=== PATIENT | female | born 1945 | race African-American/Black ===

== ENCOUNTER → 2017-09-30 | Outpatient (CLI) | payer MEDICARE, OTHER ==
[2017-09-30 08:27] LABS: ABSOLUTE BASOPHILS # (AUTO) 0.1 10^3/uL (0.0-0.2); ABSOLUTE EOSINOPHILS # (AUTO) 0.1 10^3/uL (0.0-0.6); ABSOLUTE LYMPHOCYTES (AUTO) 1.5 10^3/uL (0.5-4.7); ABSOLUTE MONOCYTES (AUTO) 0.3 10^3/uL (0.1-1.4); ABSOLUTE NEUT (AUTO) 2.5 10^3/uL (1.7-8.2); BASOPHILS % (AUTO) 1.1 % (0-2); EOSINOPHILS % (AUTO) 1.8 % (0-6); HEMATOCRIT 34.3 % (36.0-47.0); HEMOGLOBIN 11.4 g/dL (12.0-15.5); LYMPHOCYTES % (AUTO) 33.4 % (13-45); MEAN CORPUSCULAR HEMOGLOBIN 28.7 pg (27.0-33.4); MEAN CORPUSCULAR HGB CONC 33.2 g/dL (32.0-36.0); MEAN CORPUSCULAR VOLUME 86 fl (80-97); MONOCYTES % (AUTO) 7.3 % (3-13); PLATELET COUNT 341 10^3/uL (150-450); RED BLOOD COUNT 3.97 10^6/uL (3.72-5.28); RED CELL DISTRIBUTION WIDTH 14.7 % (11.5-14.0); SEGMENTED NEUTROPHILS % (AUTO) 56.4 % (42-78); TOTAL CELLS COUNTED % (AUTO) 100 %; WHITE BLOOD COUNT 4.4 10^3/uL (4.0-10.5)
[2017-09-30 08:53] LABS: ALANINE AMINOTRANSFERASE 16 U/L (9-52); ALBUMIN 3.4 g/dL (3.5-5.0); ALKALINE PHOSPHATASE 122 U/L (38-126); ANION GAP 8 (5-19); ASPARTATE AMINO TRANSFERASE 20 U/L (14-36); BILIRUBIN,DIRECT 0.3 mg/dL (0.0-0.4); BILIRUBIN,TOTAL 0.6 mg/dL (0.2-1.3); BLOOD UREA NITROGEN 6 mg/dL (7-20); CALCIUM 9.5 mg/dL (8.4-10.2); CARBON DIOXIDE 31 mmol/L (22-30); CHLORIDE 107 mmol/L (98-107); CHOLESTEROL 173.24 mg/dL (0-200); GLUCOSE 86 mg/dL (75-110); POTASSIUM 3.5 mmol/L (3.6-5.0); SODIUM 146.4 mmol/L (137-145); TOTAL PROTEIN 7.2 g/dL (6.3-8.2); TRIGLYCERIDES 92 mg/dL (<150)
[2017-09-30 09:04] LABS: DIRECT LDL 100 mg/dL (<100)
[2017-10-01 10:36] LABS: CREATININE URINE 121.8 mg/dL (Not Estab.); MICROALBUMIN URINE 11.6 ug/mL (Not Estab.)
== END ==
LOC: OD 07:12
PROVIDERS: ATTEND Internal Medicine
DX: E11.9 Type 2 diabetes mellitus without complications (principal); I10 Essential (primary) hypertension; E78.2 Mixed hyperlipidemia; M06.9 Rheumatoid arthritis, unspecified; Z68.29 Body mass index [BMI] 29.0-29.9, adult
CPT/HCPCS: 36415; 80053; 80061; 82043; 82306; 82570; 83036; 85025

== ENCOUNTER → 2017-10-21 | Outpatient (CLI) | payer MEDICARE, OTHER ==
[2017-10-21 10:57] LABS: ABSOLUTE EOSINOPHILS # (AUTO) 0.1 10^3/uL (0.0-0.6); ABSOLUTE LYMPHOCYTES (AUTO) 1.4 10^3/uL (0.5-4.7); ABSOLUTE MONOCYTES (AUTO) 0.4 10^3/uL (0.1-1.4); BASOPHILS % (AUTO) 0.9 % (0-2); EOSINOPHILS % (AUTO) 2.9 % (0-6); HEMATOCRIT 33.8 % (36.0-47.0); HEMOGLOBIN 11.2 g/dL (12.0-15.5); LYMPHOCYTES % (AUTO) 34.7 % (13-45); MEAN CORPUSCULAR HEMOGLOBIN 28.6 pg (27.0-33.4); MEAN CORPUSCULAR HGB CONC 33.1 g/dL (32.0-36.0); MEAN CORPUSCULAR VOLUME 86 fl (80-97); MONOCYTES % (AUTO) 11.5 % (3-13); PLATELET COUNT 268 10^3/uL (150-450); RED BLOOD COUNT 3.91 10^6/uL (3.72-5.28); RED CELL DISTRIBUTION WIDTH 15.2 % (11.5-14.0); TOTAL CELLS COUNTED % (AUTO) 100 %; WHITE BLOOD COUNT 3.9 10^3/uL (4.0-10.5)
--- NOTE | 2017-10-21 11:56 | RADIOLOGY REPORT (SQ) ---
EXAM DESCRIPTION: CHEST PA/LATERAL COMPLETED DATE/TIME: 10/21/2017 10:30 am REASON FOR STUDY: BRONCHITIS, NOT SPECIFIED ACUTE OR CHRONIC COMPARISON: 07/23/2015 EXAM PARAMETERS: NUMBER OF VIEWS: two views TECHNIQUE: Digital Frontal and Lateral radiographic views of the chest acquired. RADIATION DOSE: NA LIMITATIONS: none FINDINGS: LUNGS AND PLEURA: No opacities, masses or pneumothorax. No pleural effusion. MEDIASTINUM AND HILAR STRUCTURES: No masses or contour abnormalities. HEART AND VASCULAR STRUCTURES: Heart normal size. No evidence for failure. BONES: No acute findings. HARDWARE: None in the chest. OTHER: No other significant finding. IMPRESSION: NO SIGNIFICANT RADIOGRAPHIC FINDING IN THE CHEST. TECHNICAL DOCUMENTATION: JOB ID: [id number] [employer]- All Rights Reserved Reading location - IP/workstation name: [email or web address]
== END ==
LOC: OD 10:10
PROVIDERS: ATTEND Internal Medicine
DX: J40 Bronchitis, not specified as acute or chronic (principal)
CPT/HCPCS: 36415; 71046; 85025

== ENCOUNTER → 2017-11-04 | Outpatient (CLI) | payer MEDICARE, OTHER ==
[2017-11-04 09:17] LABS: ALANINE AMINOTRANSFERASE 18 U/L (9-52); ALBUMIN 3.3 g/dL (3.5-5.0); ALKALINE PHOSPHATASE 97 U/L (38-126); ANION GAP 7 (5-19); ASPARTATE AMINO TRANSFERASE 18 U/L (14-36); BILIRUBIN,DIRECT 0.3 mg/dL (0.0-0.4); BILIRUBIN,TOTAL 0.7 mg/dL (0.2-1.3); BLOOD UREA NITROGEN 9 mg/dL (7-20); CALCIUM 9.6 mg/dL (8.4-10.2); CARBON DIOXIDE 37 mmol/L (22-30); CHLORIDE 100 mmol/L (98-107); GLUCOSE 98 mg/dL (75-110); POTASSIUM 3.4 mmol/L (3.6-5.0); SODIUM 143.6 mmol/L (137-145); TOTAL PROTEIN 7.1 g/dL (6.3-8.2)
== END ==
LOC: OD 07:50
PROVIDERS: ATTEND Internal Medicine
DX: R10.9 Unspecified abdominal pain (principal); Z68.28 Body mass index [BMI] 28.0-28.9, adult
CPT/HCPCS: 36415; 80053

== ENCOUNTER → 2017-11-16 | Outpatient (CLI) | payer MEDICARE, OTHER ==
[2017-11-16 08:57] LABS: ANION GAP 9 (5-19); BLOOD UREA NITROGEN 6 mg/dL (7-20); CALCIUM 9.5 mg/dL (8.4-10.2); CARBON DIOXIDE 28 mmol/L (22-30); CHLORIDE 107 mmol/L (98-107); GLUCOSE 98 mg/dL (75-110); POTASSIUM 4.1 mmol/L (3.6-5.0); SODIUM 143.9 mmol/L (137-145)
== END ==
LOC: OD 07:16
PROVIDERS: ATTEND Internal Medicine
DX: E87.6 Hypokalemia (principal)
CPT/HCPCS: 36415; 80048

== ENCOUNTER → 2018-03-16 | Outpatient (CLI) | payer MEDICARE, OTHER ==
[2018-03-16 08:29] LABS: ANION GAP 6 (5-19); BLOOD UREA NITROGEN 11 mg/dL (7-20); CALCIUM 9.4 mg/dL (8.4-10.2); CARBON DIOXIDE 31 mmol/L (22-30); CHLORIDE 105 mmol/L (98-107); CHOLESTEROL 160.88 mg/dL (0-200); GLUCOSE 100 mg/dL (75-110); POTASSIUM 3.7 mmol/L (3.6-5.0); SODIUM 142.4 mmol/L (137-145); TRIGLYCERIDES 69 mg/dL (<150)
[2018-03-16 08:40] LABS: DIRECT LDL 93 mg/dL (<100)
== END ==
LOC: OD 07:06
PROVIDERS: ATTEND Internal Medicine
DX: N18.2 Chronic kidney disease, stage 2 (mild) (principal); E78.5 Hyperlipidemia, unspecified; E11.9 Type 2 diabetes mellitus without complications; E55.9 Vitamin D deficiency, unspecified
CPT/HCPCS: 36415; 80048; 80061; 82306; 83036

== ENCOUNTER → 2018-05-02 | Outpatient (CLI) | payer MEDICARE, OTHER ==
[2018-05-02 12:24] LABS: ALANINE AMINOTRANSFERASE 23 U/L (9-52); ALBUMIN 3.9 g/dL (3.5-5.0); ALKALINE PHOSPHATASE 114 U/L (38-126); ASPARTATE AMINO TRANSFERASE 22 U/L (14-36); BILIRUBIN,DIRECT 0.3 mg/dL (0.0-0.4); BILIRUBIN,TOTAL 0.5 mg/dL (0.2-1.3); TOTAL PROTEIN 7.4 g/dL (6.3-8.2)
== END ==
LOC: OD 11:09
PROVIDERS: ATTEND Internal Medicine
DX: E03.9 Hypothyroidism, unspecified (principal); R80.9 Proteinuria, unspecified; R94.5 Abnormal results of liver function studies
CPT/HCPCS: 36415; 80076; 84156; 84443

== ENCOUNTER → 2018-05-02 | Outpatient (CLI) | payer MEDICARE ==
--- NOTE | 2018-05-02 18:12 | XCELERA REPORT ---
[address] [address] Transthoracic Echocardiogram Report Name: ONI COLUNGA Age: 72 yrs Gender: Female : 1945 Patient Status: Outpatient Patient Location: Study Date: 05/02/2018 10:18 AM Height: 65 in Weight: 164 lb BSA: 1.8 m2 Reason For Study: CHF Ordering Physician: OTIS POST Performed By: Rissa Limon Interpretation Summary Mikd basal IVS hypokinesis only, and basal lateral wall not visualised, This did not affect overall LVEF which is 63% and normal. There is only stage I LV diastolic dysfunction, and no LV enlargement. Mild/mod TR with mild RA enlargement, but no pulm hypertension by TR jet sampled. No ASD by doppler. Mild AV sclerosis but no and no AR seen by color flow. Mild MR with no MS, no MVP and no LA enlargement, KASSIE is <31cc/m2. MMode/2D Measurements & Calculations RVDd: 2.6 cm LVIDd: 5.2 cm FS: 31.0 % Ao root diam: 2.6 cm IVSd: 0.97 cm LVIDs: 3.6 cm EDV(Teich): Ao root area: LVPWd: 0.99 cm 129.9 ml ESV(Teich): 54.2 ml5.5 cm2 LA dimension: 3.5 cm EF(Teich): 58.3 % LVLd ap4: 6.6 cm SV(MOD-sp4): EDV(MOD-sp4): 41.0 ml 72.0 ml LVLs ap4: 4.7 cm ESV(MOD-sp4): 31.0 ml EF(MOD-sp4): 56.9 % Doppler Measurements & Calculations MV E max mandeep: MV P1/2t max mandeep: Ao V2 max: LV V1 max P.7 cm/sec 62.9 cm/sec 126.7 cm/sec 4.0 mmHg MV A max mandeep: MV P1/2t: 89.4 msec Ao max P.4 mmHg LV V1 max: 87.1 cm/sec 99.9 cm/sec MV E/A: 0.71 MVA(P1/2t): 2.5 cm2 MV dec slope: 206.0 cm/sec2 MV dec time: 0.29 sec PA V2 max: TR max mandeep: MV P1/2t-pr_phl: 78.0 cm/sec 230.4 cm/sec 89.4 msec PA max PG: TR max P.2 mmHg 2.4 mmHg Left Ventricle The left ventricle is grossly normal size. There is normal left ventricular wall thickness. The left ventricular ejection fraction is normal. LV EF is 63%. Doppler measurements suggest impaired left ventricular relaxation, which is associated with grade I/IV or mild diastolic dysfunction. There is proximal septal wall mild hypokinesis. Not all wall segments were well visualized. There is no thrombus. Right Ventricle The right ventricle is normal in size, thickness and function. The right ventricular systolic function is normal. Atria The right atrium is mildly dilated. The left atrial size is normal. The interatrial septum is intact with no evidence for an atrial septal defect. Mitral Valve The mitral valve leaflets appear normal. There is no evidence of stenosis, fluttering, or prolapse. There is mild mitral annular calcification. There is no evidence of mitral valve prolapse. There is no mitral valve stenosis. There is a mild amount of mitral regurgitation. Aortic Valve The aortic valve is trileaflet. The aortic valve opens well. The aortic valve is sclerotic and shows some degree of functional abnormality. There is no aortic valvular vegetation. There is no aortic valve stenosis. No aortic regurgitation is present. Tricuspid Valve The tricuspid is normal in structure and function. There is no tricuspid valve prolapse. There is no tricuspid stenosis. There is a mild to moderate amount of tricuspid regurgitation. Right ventricular systolic pressure is estimated to be within upper limit of normal. Best estimated RVSP is approximately 30 mm/Hg. Pulmonic Valve The pulmonic valve is not well visualized. There is no pulmonic valvular regurgitation. Great Vessels The aortic root is normal size. Effusions There is no pericardial effusion. I WMSI = 1.13 % Normal = 87 Segments Size X - Cannot 2 - 4 - 1-2 small Interpret 1 - Normal Hypokinetic 3 - AkineticDyskinetic 3-5 moderate 5 - 6-14 large Aneurysmal 15-16 diffuse : OTIS POST > Chapito Jain
== END ==
LOC: SP 09:44
PROVIDERS: ATTEND Internal Medicine
DX: I50.9 Heart failure, unspecified (principal)
CPT/HCPCS: 93306

== ENCOUNTER → 2018-05-17 | Outpatient (CLI) | payer MEDICARE, OTHER ==
[2018-05-17 08:29] LABS: ABSOLUTE EOSINOPHILS # (AUTO) 0.1 10^3/uL (0.0-0.6); ABSOLUTE LYMPHOCYTES (AUTO) 1.3 10^3/uL (0.5-4.7); ABSOLUTE MONOCYTES (AUTO) 0.6 10^3/uL (0.1-1.4); ABSOLUTE NEUT (AUTO) 1.4 10^3/uL (1.7-8.2); BASOPHILS % (AUTO) 0.8 % (0-2); EOSINOPHILS % (AUTO) 2.8 % (0-6); HEMATOCRIT 34.1 % (36.0-47.0); HEMOGLOBIN 11.4 g/dL (12.0-15.5); LYMPHOCYTES % (AUTO) 37.9 % (13-45); MEAN CORPUSCULAR HEMOGLOBIN 29.5 pg (27.0-33.4); MEAN CORPUSCULAR HGB CONC 33.4 g/dL (32.0-36.0); MEAN CORPUSCULAR VOLUME 88 fl (80-97); MONOCYTES % (AUTO) 17.2 % (3-13); PLATELET COUNT 221 10^3/uL (150-450); RED BLOOD COUNT 3.87 10^6/uL (3.72-5.28); SEGMENTED NEUTROPHILS % (AUTO) 41.3 % (42-78); TOTAL CELLS COUNTED % (AUTO) 100 %; WHITE BLOOD COUNT 3.5 10^3/uL (4.0-10.5)
[2018-05-17 08:55] LABS: CHOLESTEROL 173.96 mg/dL (0-200); POTASSIUM 4.7 mmol/L (3.6-5.0); TRIGLYCERIDES 68 mg/dL (<150)
[2018-05-17 09:07] LABS: DIRECT LDL 99 mg/dL (<100)
== END ==
LOC: OD 07:20
PROVIDERS: ATTEND Internal Medicine
DX: E11.9 Type 2 diabetes mellitus without complications (principal); E78.5 Hyperlipidemia, unspecified; D64.9 Anemia, unspecified; E87.5 Hyperkalemia
CPT/HCPCS: 36415; 80061; 83036; 84132; 85025

== ENCOUNTER → 2018-06-29 | Outpatient (CLI) | payer MEDICARE, OTHER | LOC: OD 07:45 | PROVIDERS: ATTEND Internal Medicine | DX: M32.9 Systemic lupus erythematosus, unspecified (principal) | CPT/HCPCS: 36415; 86038; 86225 ==

== ENCOUNTER → 2018-09-20 | Outpatient (CLI) | payer MEDICARE, OTHER ==
[2018-09-20 07:52] LABS: ABSOLUTE EOSINOPHILS # (AUTO) 0.2 10^3/uL (0.0-0.6); ABSOLUTE LYMPHOCYTES (AUTO) 1.4 10^3/uL (0.5-4.7); ABSOLUTE MONOCYTES (AUTO) 0.7 10^3/uL (0.1-1.4); ABSOLUTE NEUT (AUTO) 1.8 10^3/uL (1.7-8.2); BASOPHILS % (AUTO) 0.8 % (0-2); EOSINOPHILS % (AUTO) 3.7 % (0-6); HEMATOCRIT 24.9 % (36.0-47.0); HEMOGLOBIN 8.2 g/dL (12.0-15.5); LYMPHOCYTES % (AUTO) 34.9 % (13-45); MEAN CORPUSCULAR HEMOGLOBIN 29.5 pg (27.0-33.4); MEAN CORPUSCULAR VOLUME 89 fl (80-97); MONOCYTES % (AUTO) 17.3 % (3-13); PLATELET COUNT 207 10^3/uL (150-450); RED BLOOD COUNT 2.78 10^6/uL (3.72-5.28); RED CELL DISTRIBUTION WIDTH 16.6 % (11.5-14.0); SEGMENTED NEUTROPHILS % (AUTO) 43.3 % (42-78); TOTAL CELLS COUNTED % (AUTO) 100 %; WHITE BLOOD COUNT 4.1 10^3/uL (4.0-10.5)
[2018-09-20 08:25] LABS: ALANINE AMINOTRANSFERASE 31 U/L (9-52); ALBUMIN 3.7 g/dL (3.5-5.0); ALKALINE PHOSPHATASE 98 U/L (38-126); ANION GAP 7 (5-19); ASPARTATE AMINO TRANSFERASE 24 U/L (14-36); BILIRUBIN,DIRECT 0.2 mg/dL (0.0-0.4); BILIRUBIN,TOTAL 0.6 mg/dL (0.2-1.3); BLOOD UREA NITROGEN 17 mg/dL (7-20); CALCIUM 9.4 mg/dL (8.4-10.2); CARBON DIOXIDE 25 mmol/L (22-30); CHLORIDE 110 mmol/L (98-107); GLUCOSE 92 mg/dL (75-110); POTASSIUM 4.4 mmol/L (3.6-5.0); SODIUM 142.2 mmol/L (137-145); TOTAL PROTEIN 7.1 g/dL (6.3-8.2)
== END ==
LOC: OD 07:13
PROVIDERS: ATTEND Internal Medicine
DX: E11.9 Type 2 diabetes mellitus without complications (principal); R10.9 Unspecified abdominal pain; D64.9 Anemia, unspecified; E03.9 Hypothyroidism, unspecified
CPT/HCPCS: 36415; 80053; 83036; 84443; 85025

== ENCOUNTER → 2018-09-21 | Outpatient (CLI) | payer MEDICARE, OTHER ==
[2018-09-21 08:21] LABS: ABSOLUTE RETICS # 0.059 10^6/uL (0.028-0.122)
[2018-09-21 09:52] LABS: FOLATE > 20.00 ng/mL (>2.76)
== END ==
LOC: OD 07:26
PROVIDERS: ATTEND Internal Medicine
DX: D50.9 Iron deficiency anemia, unspecified (principal)
CPT/HCPCS: 36415; 82607; 82668; 82728; 82746; 83540; 83550; 85045; 86038

== ENCOUNTER → 2018-09-25 | Outpatient (CLI) | payer MEDICARE, OTHER ==
[2018-09-27 15:36] LABS: A/G RATIO 1.1 (0.7-1.7); ALBUMIN 2 3.6 g/dL (2.9-4.4); ALPHA-2-GLOBULIN 2 0.8 g/dL (0.4-1.0); BETA GLOBULINS 1.3 g/dL (0.7-1.3); GAMMA GLOBULIN 1.1 g/dL (0.4-1.8); GLOBULIN TOTAL 3.4 g/dL (2.2-3.9); IMMUNOGLOBULIN A 536 mg/dL (64-422); IMMUNOGLOBULIN G 1262 mg/dL (700-1600); MONOCLONAL SPIKE Not Observed g/dL (Not Observ)
[2018-09-27 16:37] LABS: FREE KAPPA LIGHT CHAINS 72.6 mg/L (3.3-19.4); FREE LAMBDA LIGHT CHAINS 32.6 mg/L (5.7-26.3)
[2018-09-28 07:31] LABS: IMMUNOGLOBULIN M 115 mg/dL (26-217); KAPPA LAMBDA RATIO 2.23 (0.26-1.65)
== END ==
LOC: LAB 12:07
PROVIDERS: ATTEND Internal Medicine
DX: C90.00 Multiple myeloma not having achieved remission (principal)
CPT/HCPCS: 36415; 82784; 83883; 84165

== ENCOUNTER → 2018-10-18 | Outpatient (CLI) | payer MEDICARE, OTHER ==
[2018-10-18 08:45] LABS: ANION GAP 10 (5-19); BLOOD UREA NITROGEN 12 mg/dL (7-20); CALCIUM 9.5 mg/dL (8.4-10.2); CARBON DIOXIDE 24 mmol/L (22-30); CHLORIDE 107 mmol/L (98-107); GLUCOSE 97 mg/dL (75-110); POTASSIUM 4.5 mmol/L (3.6-5.0)
== END ==
LOC: OD 07:20
PROVIDERS: ATTEND Family Medicine Geriatric Medicine
DX: I10 Essential (primary) hypertension (principal); E11.9 Type 2 diabetes mellitus without complications; Z79.899 Other long term (current) drug therapy
CPT/HCPCS: 36415; 80048

== ENCOUNTER → 2018-10-18 | Outpatient (CLI) | payer MEDICARE, OTHER ==
--- NOTE | 2018-10-18 18:27 | XCELERA REPORT ---
[address] [address] Transthoracic Echocardiogram Report Name: ONI COLUNGA Age: 73 yrs Gender: Female : 1945 Patient Status: Outpatient Patient Location: SP Study Date: 10/18/2018 11:29 AM Height: 65 in Weight: 176 lb BSA: 1.9 m2 Reason For Study: SOB Ordering Physician: ISRAEL EM Performed By: Elisabeth Villalobos Interpretation Summary small post post pericardial effusion, no tamponade. No or , only 3 cusps nonstenotic calcific aortic valvular sclerosis. Normal MV with no MVP or MS and only mild MR with no LA enlargement. LV apical hypertrophy mild, no concentric hypertrophy, normal LVEF 65-70 % with stage I LV diastolic dysfunction and no LV enlargement. RV poorly seen, RV doesnot appear enlarged. RA not measured, TR jet was not properly sampled to derive PASP to r/o pulm hypertension, but IVC didnot collapse properly without IVC engorgement (17mm), hence suspect the poor collapse is due to no proper coaching of pt to sniff by this dental technician. Etiology of pt's SOB may not originate from her heart. MMode/2D Measurements & Calculations IVSd: 0.88 cm LVIDd: 5.2 cm FS: 38.5 % Ao root diam: LVIDs: 3.2 cm EDV(Teich): 2.7 cm LVPWd: 0.96 cm 128.9 ml Ao root area: ESV(Teich): 40.7 ml 5.8 cm2 LA dimension: EF(Teich): 68.4 % 3.2 cm LVLd ap4: 7.1 cm SV(MOD-sp4): EDV(MOD-sp4): 81.0 ml 111.0 ml LVLs ap4: 6.5 cm ESV(MOD-sp4): 30.0 ml EF(MOD-sp4): 73.0 % Doppler Measurements & Calculations MV E max mandeep: MV dec time: Ao V2 max: LV V1 max P.9 cm/sec 0.19 sec 151.3 cm/sec 5.3 mmHg MV A max mandeep: Ao max P.2 mmHg LV V1 max: 88.4 cm/sec 114.7 cm/sec MV E/A: 0.98 PA V2 max: 87.4 cm/sec PA max P.1 mmHg Left Ventricle The left ventricle is grossly normal size. Apical hypertrophy is present. IVS/PW = 10/10 (mm0. The left ventricular ejection fraction is normal. LV EF is 65-70%. Doppler measurements suggest impaired left ventricular relaxation, which is associated with grade I/IV or mild diastolic dysfunction. No regional wall motion abnormalities noted. There is no thrombus. Right Ventricle The right ventricle is grossly normal size. The right ventricular systolic function is normal. Atria The right atrium is normal in size. The left atrial size is normal. KASSIE 32. The interatrial septum is intact with no evidence for an atrial septal defect. Mitral Valve The mitral valve is normal in structure and function. There is no mitral annular calcification. There is no evidence of mitral valve prolapse. There is no mitral valve stenosis. There is a mild amount of mitral regurgitation. Aortic Valve The aortic valve is trileaflet. The aortic valve opens well. The aortic valve is mildly calcified. There is no aortic valvular vegetation. There is no aortic valve stenosis. No aortic regurgitation is present. Tricuspid Valve The tricuspid valve is not well visualized, but is grossly normal. There is no tricuspid valve prolapse. There is no tricuspid stenosis. Tricuspid regurgitation jet envelope not well defined to measure RV systolic pressure accurately. Pulmonic Valve The pulmonic valve is not well visualized. There is no pulmonic valvular regurgitation. Great Vessels The aortic root is normal size. There is aortic root sclerosis/calcification. The inferior vena cava appeared dilated and decreased < 50% with respiration (RAP 15-20 mmHg). Effusions Small pericardial effusion. I WMSI = 1.00 % Normal = 100 Segments Size X - Cannot 1 - Normal 2 - 3 - Akinetic4 - 1-2 small Interpret Hypokinetic Dyskinetic 3-5 moderate 5 - 6-14 large Aneurysmal 15-16 diffuse : ISRAEL EM > Chapito Jain
== END ==
LOC: SP 10:54
PROVIDERS: ATTEND Family Medicine Geriatric Medicine
DX: R06.02 Shortness of breath (principal)
CPT/HCPCS: 93306

== ENCOUNTER → 2018-11-02 | Outpatient (CLI) | payer MEDICARE, OTHER | LOC: OD 11:26 | PROVIDERS: ATTEND Family Medicine Geriatric Medicine | DX: G62.9 Polyneuropathy, unspecified (principal) | CPT/HCPCS: 36415; 82607 ==

== ENCOUNTER → 2018-12-11 | Outpatient (CLI) | payer MEDICARE, OTHER ==
--- NOTE | 2018-12-11 13:18 | RADIOLOGY REPORT (SQ) ---
EXAM DESCRIPTION: CT CHEST WITHOUT COMPLETED DATE/TIME: 12/11/2018 1:05 pm REASON FOR STUDY: R91.1 SOLITARY PULMONARY NODULE R91.1 SOLITARY PULMONARY NODULE COMPARISON: CT chest 02/09/2016, 02/20/2015, 08/19/2014, 03/01/2014 TECHNIQUE: CT scan performed of the chest without intravenous contrast. Images reviewed with lung, soft tissue and bone windows. Reconstructed coronal and sagittal MPR images reviewed. All images st ored on PACS. All CT scanners at this facility use dose modulation, iterative reconstruction, and/or weight based d osing when appropriate to reduce radiation dose to as low as reasonably achievable (ALARA). [facility]: Dose Right [facility]: CareDose [facility]: Dose Right [facility]: Teradose 4D [facility]: Spectrum Devices RADIATION DOSE: CT Rad equipment meets quality standard of care and radiation dose reduction techniq ues were employed. CTDIvol: 9.2 mGy. DLP: 337 mGy-cm. mGy. LIMITATIONS: No technical limitations. FINDINGS: LUNGS AND PLEURA: 6 mm right lower lobe smooth round noncalcified granuloma unchanged from CT dating back to 03/01/2014, benign. No worrisome pulmonary nodules. No acute infiltrates. No pleural effusion. No pneumothorax. Airwa ys are widely patent. HILAR AND MEDIASTINAL STRUCTURES: No identified masses or abnormal nodes. No obvious aneurysm. HEART AND VASCULAR STRUCTURES: No aneurysm. No pericardial effusion. Stable cardiomegaly UPPER ABDOMEN: Post cholecystectomy THYROID AND OTHER SOFT TISSUES: Diffusely enlarged thyroid gland. Diffusely enlarged thymus in the a nterior mediastinum, stable BONES: No significant finding. HARDWARE: None in the chest. OTHER: No other significant findings. IMPRESSION: NO SIGNIFICANT FINDING ON NON-CONTRASTED CHEST CT. TECHNICAL DOCUMENTATION: JOB ID: [id number] Quality ID # [id number]: Final reports with documentation of one or more dose reduction techniques (e.g., Au tomated exposure control, adjustment of the mA and/or kV according to patient size, use of iterative reconstruction technique) 2010 [employer]- All Rights Reserved Reading location - IP/workstation name: [email or web address]
== END ==
LOC: RAD 12:41
PROVIDERS: ATTEND Internal Medicine Pulmonary Disease
DX: R91.1 Solitary pulmonary nodule (principal)
CPT/HCPCS: 71250

== ENCOUNTER 2018-12-21 12:16 | Emergency (ER) | payer MEDICARE, OTHER ==
[2018-12-21] MEDS ORDERED: ASPIRIN 81 MG TABLET, CHEWABLE PO ONE (12:31)
--- NOTE | 2018-12-21 12:32 | ER Document Report ---
ED Medical Screen (RME) - General Chief Complaint: Chest Pain Stated Complaint: BLOOD PRESSURE PROBLEM Time Seen by Provider: 12/21/18 12:31 Primary Care Provider: ALIA CAVAZOS MD [Primary Care Provider] - Follow up as needed Mode of Arrival: Wheelchair Information source: Patient, Relative Notes: This 73-year-old female presents emergency department with complaints of high blood pressure. Patient also reports she is having a little bit of chest tightness center of her chest. Reports she is been dealing with a high blood pressure for the last couple weeks. Has been to to providers regarding this. Denies fever vomiting diarrhea. I have greeted and performed a rapid initial assessment of this patient. A comprehensive ED assessment and evaluation of the patient, analysis of test results and completion of the medical decision making process will be conducted by additional ED providers. Dictation of this chart was performed using voice recognition software; therefore, there may be some unintended grammatical errors. TRAVEL OUTSIDE OF THE [place] IN LAST 30 DAYS: No - Related Data Allergies/Adverse Reactions: latex Allergy (Mild, Verified 12/21/18 12:25) Shellfish * [Shellfish] Allergy (Mild, Verified 12/21/18 12:25) swell up iodine [Iodine] Allergy (Verified 12/21/18 12:25) oxycodone [From Percocet] Adverse Reaction (Verified 12/21/18 12:25) Past Medical History - Social History Chew tobacco use (# tins/day): No Frequency of alcohol use: None Drug Abuse: None - Past Medical History Cardiac Medical History: Reports: Hx Hypertension Denies: Hx Heart Attack Pulmonary Medical History: Reports: Hx COPD Denies: Hx Asthma Neurological Medical History: Denies: Hx Cerebrovascular Accident, Hx Seizures Endocrine Medical History: Reports: Hx Diabetes Mellitus Type 2 GI Medical History: Denies: Hx Hepatitis, Hx Hiatal Hernia, Hx Ulcer Musculoskeltal Medical History: Reports Hx Arthritis Infectious Medical History: Denies: Hx Hepatitis Past Surgical History: Reports: Hx Hysterectomy, Hx Orthopedic Surgery - left hip replacement. Denies: Hx Mastectomy, Hx Open Heart Surgery, Hx Pacemaker - Immunizations Hx Diphtheria, Pertussis, Tetanus Vaccination: Yes Physical Exam - Vital signs Vitals: Temp Pulse Resp BP Pulse Ox 97.7 F 64 18 188/101 H 97 12/21/18 12:22 12/21/18 12:22 12/21/18 12:22 12/21/18 12:22 12/21/18 12:22 Course - Vital Signs Vital signs: Temp Pulse Resp BP Pulse Ox 97.7 F 64 18 188/101 H 97 12/21/18 12:22 12/21/18 12:22 12/21/18 12:22 12/21/18 12:22 12/21/18 12:22 Doctor's Discharge - Discharge Referrals: ALIA CAVAZOS MD [Primary Care Provider] - Follow up as needed
--- NOTE | 2018-12-21 13:08 | EKG REPORT ---
SEVERITY:- ABNORMAL ECG - SINUS RHYTHM NONSPECIFIC T ABNORMALITIES, ANT-LAT LEADS : Confirmed by: Chapito Jain MD 21-Dec-2018 13:07:49
[2018-12-21 13:22] LABS: ABSOLUTE BASOPHILS # (AUTO) 0.1 10^3/uL (0.0-0.2); ABSOLUTE EOSINOPHILS # (AUTO) 0.1 10^3/uL (0.0-0.6); ABSOLUTE LYMPHOCYTES (AUTO) 1.3 10^3/uL (0.5-4.7); ABSOLUTE MONOCYTES (AUTO) 0.3 10^3/uL (0.1-1.4); ABSOLUTE NEUT (AUTO) 1.7 10^3/uL (1.7-8.2); BASOPHILS % (AUTO) 1.5 % (0-2); EOSINOPHILS % (AUTO) 2.1 % (0-6); HEMATOCRIT 31.5 % (36.0-47.0); HEMOGLOBIN 10.2 g/dL (12.0-15.5); LYMPHOCYTES % (AUTO) 37.2 % (13-45); MEAN CORPUSCULAR HEMOGLOBIN 27.7 pg (27.0-33.4); MEAN CORPUSCULAR HGB CONC 32.2 g/dL (32.0-36.0); MEAN CORPUSCULAR VOLUME 86 fl (80-97); MONOCYTES % (AUTO) 9.1 % (3-13); PLATELET COUNT 241 10^3/uL (150-450); RED BLOOD COUNT 3.67 10^6/uL (3.72-5.28); RED CELL DISTRIBUTION WIDTH 14.8 % (11.5-14.0); SEGMENTED NEUTROPHILS % (AUTO) 50.1 % (42-78); TOTAL CELLS COUNTED % (AUTO) 100 %; WHITE BLOOD COUNT 3.5 10^3/uL (4.0-10.5)
[2018-12-21 13:43] LABS: ALBUMIN 3.5 g/dL (3.5-5.0); ALKALINE PHOSPHATASE 96 U/L (38-126); ANION GAP 7 (5-19); ASPARTATE AMINO TRANSFERASE 15 U/L (14-36); BILIRUBIN,TOTAL 0.4 mg/dL (0.2-1.3); BLOOD UREA NITROGEN 8 mg/dL (7-20); CALCIUM 9.9 mg/dL (8.4-10.2); CARBON DIOXIDE 28 mmol/L (22-30); CHLORIDE 106 mmol/L (98-107); CREATINE KINASE 52 U/L (30-135); GLUCOSE 115 mg/dL (75-110); POTASSIUM 3.8 mmol/L (3.6-5.0); TOTAL PROTEIN 8.4 g/dL (6.3-8.2)
--- NOTE | 2018-12-21 13:51 | RADIOLOGY REPORT (SQ) ---
EXAM DESCRIPTION: CHEST 2 VIEWS COMPLETED DATE/TIME: 12/21/2018 1:30 pm REASON FOR STUDY: CHEST COMPARISON: 07/23/2015 EXAM PARAMETERS: NUMBER OF VIEWS: two views TECHNIQUE: Digital Frontal and Lateral radiographic views of the chest acquired. RADIATION DOSE: NA LIMITATIONS: none FINDINGS: LUNGS AND PLEURA: No opacities, masses or pneumothorax. No pleural effusion. MEDIASTINUM AND HILAR STRUCTURES: No masses or contour abnormalities. HEART AND VASCULAR STRUCTURES: Cardiomegaly with no glenroy pulmonary edema. BONES: No acute findings. HARDWARE: None in the chest. OTHER: No other significant finding. IMPRESSION: Cardiomegaly without pulmonary edema. TECHNICAL DOCUMENTATION: JOB ID: [id number] [employer]- All Rights Reserved Reading location - IP/workstation name: [email or web address]
[2018-12-21 13:53] LABS: CREATINE KINASE MB 0.69 ng/mL (<4.55)
[2018-12-21 13:55] LABS: TROPONIN I < 0.012 ng/mL
--- NOTE | 2018-12-21 15:18 | ER Document Report ---
ED General - General Chief Complaint: Chest Pain Stated Complaint: BLOOD PRESSURE PROBLEM Time Seen by Provider: 12/21/18 12:31 Primary Care Provider: ALIA CAVAZOS MD [ACTIVE STAFF] - Follow up as needed Mode of Arrival: Wheelchair TRAVEL OUTSIDE OF THE [place] IN LAST 30 DAYS: No - HPI Patient complains to provider of: Chest Pain Notes: Uncontrolled hypertension in the outpatient realm. Seen her family doctor. Patient's systolic blood pressure 200. Patient said she had some fleeting chest pain with this 2/10 fluttering in nature. Nothing makes it better or worse. Patient is on multiple antihypertensive medications and just recently started on clonidine by her PCP. PCP was concerned this could be causing endorgan damage. She denies any headache or focal neurologic deficit, patient denies any decreased urinary output or pain at all. - Related Data Allergies/Adverse Reactions: latex Allergy (Mild, Verified 12/21/18 12:25) Shellfish * [Shellfish] Allergy (Mild, Verified 12/21/18 12:25) swell up iodine [Iodine] Allergy (Verified 12/21/18 12:25) oxycodone [From Percocet] Adverse Reaction (Verified 12/21/18 12:25) Past Medical History - General Information source: Patient, Relative - Social History Smoking Status: Never Smoker Chew tobacco use (# tins/day): No Frequency of alcohol use: None Drug Abuse: None Family History: Reviewed & Not Pertinent Patient has suicidal ideation: No Patient has homicidal ideation: No - Past Medical History Cardiac Medical History: Reports: Hx Hypertension Denies: Hx Heart Attack Pulmonary Medical History: Reports: Hx COPD Denies: Hx Asthma Neurological Medical History: Denies: Hx Cerebrovascular Accident, Hx Seizures Endocrine Medical History: Reports: Hx Diabetes Mellitus Type 2 GI Medical History: Denies: Hx Hepatitis, Hx Hiatal Hernia, Hx Ulcer Musculoskeletal Medical History: Reports Hx Arthritis Infectious Medical History: Denies: Hx Hepatitis Past Surgical History: Reports: Hx Hysterectomy, Hx Orthopedic Surgery - left hip replacement. Denies: Hx Mastectomy, Hx Open Heart Surgery, Hx Pacemaker - Immunizations Hx Diphtheria, Pertussis, Tetanus Vaccination: Yes Review of Systems - Review of Systems Notes: View of systems REVIEW OF SYSTEMS: CONSTITUTIONAL: -fevers, -chills EENT: -eye pain, -difficulty swallowing, -nasal congestion CARDIOVASCULAR: -chest pain, -syncope. RESPIRATORY: -cough, -SOB GASTROINTESTINAL: -abdominal pain, -nausea, -vomiting, -diarrhea GENITOURINARY: -dysuria, -hematuria MUSCULOSKELETAL: -back pain, -neck pain SKIN: -rash or skin lesions. HEMATOLOGIC: -easy bruising or bleeding. LYMPHATIC: -swollen, enlarged glands. NEUROLOGICAL: -altered mental status or loss of consciousness, -headache, - neurologic symptoms PSYCHIATRIC: -anxiety, -depression. ALL OTHER SYSTEMS REVIEWED AND NEGATIVE. Physical Exam - Vital signs Vitals: Temp Pulse Resp BP Pulse Ox 97.7 F 64 18 188/101 H 97 12/21/18 12:22 12/21/18 12:22 12/21/18 12:22 12/21/18 12:22 12/21/18 12:22 - Notes Notes: PHYSICAL EXAMINATION: GENERAL: Well-appearing, well-nourished and in no acute distress. HEAD: Atraumatic, normocephalic. EYES: Pupils equal round and reactive to light, extraocular movements intact, sclera anicteric, conjunctiva are normal. ENT: nares patent, oropharynx clear without exudates. Moist mucous membranes. NECK: Normal range of motion, supple without lymphadenopathy LUNGS: Breath sounds clear to auscultation bilaterally and equal. No wheezes rales or rhonchi. HEART: Regular rate and rhythm without murmurs ABDOMEN: Soft, nontender, normoactive bowel sounds. No guarding, no rebound. No masses appreciated. EXTREMITIES: Normal range of motion, no pitting or edema. No cyanosis. NEUROLOGICAL: Cranial nerves grossly intact. Normal speech, normal gait. Normal sensory and motor exams. PSYCH: Normal mood, normal affect. SKIN: Warm, Dry, normal turgor, no rashes or lesions noted. Course - Re-evaluation Re-evalutation: 12/21/18 15:33 Patient presents now pain-free. Reassuring physical exam no complaints at this time. EKG is no ischemic changes. Insert lab work unremarkable, negative troponin, preserved kidney function, no endorgan damage. Urine shows infection. Patient will be discharged home improved. Given oral clonidine. Systolic blood pressure improved to 170. Follow-up family doctor the next few days. Patient will return if anything changes or worsens. Patient has no pain 12/21/18 16:25 - Vital Signs Vital signs: Temp Pulse Resp BP Pulse Ox 97.7 F 64 21 H 171/79 H 99 12/21/18 12:22 12/21/18 12:22 12/21/18 16:01 12/21/18 15:01 12/21/18 16:01 - Laboratory Result Diagrams: 12/21/18 13:00 12/21/18 13:00 Laboratory results interpreted by me: 12/21/18 12/21/18 13:00 13:00 WBC 3.5 L RBC 3.67 L Hgb 10.2 L Hct 31.5 L RDW 14.8 H Glucose 115 H Total Protein 8.4 H - EKG Interpretation by Me Additional EKG results interpreted by me: 12/21/18 15:33 Reed sinus rhythm 54 bpm, normal AK, normal QRS, no ischemic changes. Discharge - Discharge Clinical Impression: Hypertension Qualifiers: Hypertension type: unspecified secondary hypertension Qualified Code(s): I15.9 - Secondary hypertension, unspecified; I15 - Secondary hypertension Disposition: HOME, SELF-CARE Instructions: Angina Episode ([facility]) Referrals: ALIA CAVAZOS MD [ACTIVE STAFF] - Follow up as needed
[2018-12-21] MEDS ORDERED: CLONIDINE HCL 0.2 MG TABLET PO ONE (16:11)
[2018-12-21 16:24] LABS: APPEARANCE,URINE CLEAR; BILIRUBIN,URINE NEGATIVE (NEGATIVE); COLOR,URINE COLORLESS; GLUCOSE, URINE NEGATIVE (NEGATIVE); KETONES,URINE NEGATIVE (NEGATIVE); LEUKOCYTE ESTERASE,URINE NEGATIVE (NEGATIVE); NITRITE,URINE NEGATIVE (NEGATIVE); PROTEIN,URINE NEGATIVE (NEGATIVE); URINE SPECIFIC GRAVITY 1.003; UROBILINOGEN,URINE NEGATIVE mg/dL (<2.0)
[2018-12-21 16:47] VITALS: BP 190/99
== END 2018-12-21 17:03 | disposition home or self-care (01) ==
LOC: ER 12:16
DX: R07.9 Chest pain, unspecified (principal); J44.9 Chronic obstructive pulmonary disease, unspecified; E11.9 Type 2 diabetes mellitus without complications; Z79.899 Other long term (current) drug therapy; Z91.040 Latex allergy status; Z91.013 Allergy to seafood
CPT/HCPCS: 93005; 99284; 36415; 82553; 82550; 85025; 80053; 81001; 84484; 71046; 93010; A9270 ×2

== ENCOUNTER 2018-12-22 06:38 | Observation (INO) | payer MEDICARE, OTHER ==
--- NOTE | 2018-12-22 07:19 | ER Document Report ---
ED General - General Chief Complaint: High Blood Pressure Stated Complaint: HIGH BLOOD PRESSURE Time Seen by Provider: 12/22/18 07:14 TRAVEL OUTSIDE OF THE [place] IN LAST 30 DAYS: No - HPI Patient complains to provider of: shoulder pain Notes: Elderly female presents with continued hypertension. This morning she woke up she had some crushing pain in her left upper shoulder which is new pain is 8/10 crushing in nature without radiation nothing makes it better or worse. Patient denies all other associated symptoms. - Related Data Allergies/Adverse Reactions: latex Allergy (Mild, Verified 12/21/18 12:25) Shellfish * [Shellfish] Allergy (Mild, Verified 12/21/18 12:25) swell up iodine [Iodine] Allergy (Verified 12/21/18 12:25) gabapentin Adverse Reaction (Verified 12/22/18 06:49) oxycodone [From Percocet] Adverse Reaction (Verified 12/21/18 12:25) Past Medical History - Social History Smoking Status: Never Smoker Chew tobacco use (# tins/day): No Frequency of alcohol use: None Family History: Reviewed & Not Pertinent Patient has suicidal ideation: No Patient has homicidal ideation: No - Past Medical History Cardiac Medical History: Reports: Hx Hypertension Denies: Hx Heart Attack Pulmonary Medical History: Reports: Hx COPD Denies: Hx Asthma Neurological Medical History: Denies: Hx Cerebrovascular Accident, Hx Seizures Endocrine Medical History: Reports: Hx Diabetes Mellitus Type 2 GI Medical History: Denies: Hx Hepatitis, Hx Hiatal Hernia, Hx Ulcer Musculoskeletal Medical History: Reports Hx Arthritis Infectious Medical History: Denies: Hx Hepatitis Past Surgical History: Reports: Hx Hysterectomy, Hx Orthopedic Surgery - left hip replacement. Denies: Hx Mastectomy, Hx Open Heart Surgery, Hx Pacemaker - Immunizations Hx Diphtheria, Pertussis, Tetanus Vaccination: Yes Review of Systems - Review of Systems Notes: REVIEW OF SYSTEMS: CONSTITUTIONAL: -fevers, -chills EENT: -eye pain, -difficulty swallowing, -nasal congestion CARDIOVASCULAR: positive chest pain, -syncope. RESPIRATORY: -cough, -SOB GASTROINTESTINAL: -abdominal pain, -nausea, -vomiting, -diarrhea GENITOURINARY: -dysuria, -hematuria MUSCULOSKELETAL: -back pain, -neck pain SKIN: -rash or skin lesions. HEMATOLOGIC: -easy bruising or bleeding. LYMPHATIC: -swollen, enlarged glands. NEUROLOGICAL: -altered mental status or loss of consciousness, -headache, - neurologic symptoms PSYCHIATRIC: -anxiety, -depression. ALL OTHER SYSTEMS REVIEWED AND NEGATIVE. Physical Exam - Vital signs Vitals: Temp Pulse Resp BP Pulse Ox 97.9 F 63 16 191/96 H 99 12/22/18 06:48 12/22/18 06:48 12/22/18 06:48 12/22/18 06:48 12/22/18 06:48 - Notes Notes: PHYSICAL EXAMINATION: GENERAL: Well-appearing, well-nourished and in no acute distress. HEAD: Atraumatic, normocephalic. EYES: Pupils equal round and reactive to light, extraocular movements intact, sclera anicteric, conjunctiva are normal. ENT: nares patent, oropharynx clear without exudates. Moist mucous membranes. NECK: Normal range of motion, supple without lymphadenopathy LUNGS: Breath sounds clear to auscultation bilaterally and equal. No wheezes rales or rhonchi. HEART: Regular rate and rhythm without murmurs ABDOMEN: Soft, nontender, normoactive bowel sounds. No guarding, no rebound. No masses appreciated. EXTREMITIES: Normal range of motion, no pitting or edema. No cyanosis. NEUROLOGICAL: Cranial nerves grossly intact. Normal speech, normal gait. Normal sensory and motor exams. PSYCH: Normal mood, normal affect. SKIN: Warm, Dry, normal turgor, no rashes or lesions noted. Course - Re-evaluation Re-evalutation: 12/22/18 08:49 73-year-old female presents with concerning story of accelerated hypertension and some left shoulder/chest pain. Patient's EKG is nonischemic, extensive lab work-up unremarkable, no obvious signs of endorgan damage. Negative troponin. Patient given antihypertensive agents in the emergency department. This the patient's second visit to the emergency department for similar symptoms last 2 days. Patient will be admitted for further evaluation of cardiac chest pain and accelerated hypertension. - Vital Signs Vital signs: Temp Pulse Resp BP Pulse Ox 97.9 F 63 16 191/96 H 99 12/22/18 06:48 12/22/18 06:48 12/22/18 06:48 12/22/18 06:48 12/22/18 06:48 - Laboratory Result Diagrams: 12/22/18 07:35 12/22/18 07:35 Laboratory results interpreted by me: 12/22/18 07:35 WBC 3.5 L Hgb 10.4 L Hct 32.6 L MCHC 31.9 L RDW 15.2 H Discharge - Discharge Clinical Impression: Hypertensive disorder Qualifiers: Hypertension type: unspecified Qualified Code(s): I10 - Essential (primary) hypertension Chest pain Qualifiers: Chest pain type: unspecified Qualified Code(s): R07.9 - Chest pain, unspecified Condition: Stable Disposition: ADMITTED INPATIENT Admitting Provider: Digna Carter Unit Admitted: Telemetry
[2018-12-22 08:01] LABS: ABSOLUTE EOSINOPHILS # (AUTO) 0.1 10^3/uL (0.0-0.6); ABSOLUTE LYMPHOCYTES (AUTO) 1.1 10^3/uL (0.5-4.7); ABSOLUTE MONOCYTES (AUTO) 0.4 10^3/uL (0.1-1.4); ABSOLUTE NEUT (AUTO) 1.9 10^3/uL (1.7-8.2); EOSINOPHILS % (AUTO) 2.3 % (0-6); HEMATOCRIT 32.6 % (36.0-47.0); HEMOGLOBIN 10.4 g/dL (12.0-15.5); LYMPHOCYTES % (AUTO) 31.2 % (13-45); MEAN CORPUSCULAR HEMOGLOBIN 27.4 pg (27.0-33.4); MEAN CORPUSCULAR HGB CONC 31.9 g/dL (32.0-36.0); MEAN CORPUSCULAR VOLUME 86 fl (80-97); MONOCYTES % (AUTO) 10.9 % (3-13); PLATELET COUNT 243 10^3/uL (150-450); RED BLOOD COUNT 3.79 10^6/uL (3.72-5.28); RED CELL DISTRIBUTION WIDTH 15.2 % (11.5-14.0); SEGMENTED NEUTROPHILS % (AUTO) 54.6 % (42-78); TOTAL CELLS COUNTED % (AUTO) 100 %; WHITE BLOOD COUNT 3.5 10^3/uL (4.0-10.5)
[2018-12-22 08:23] LABS: ANION GAP 6 (5-19); BLOOD UREA NITROGEN 9 mg/dL (7-20); CALCIUM 10.1 mg/dL (8.4-10.2); CARBON DIOXIDE 28 mmol/L (22-30); CHLORIDE 107 mmol/L (98-107); GLUCOSE 96 mg/dL (75-110); POTASSIUM 4.4 mmol/L (3.6-5.0)
[2018-12-22] MEDS ORDERED: CLONIDINE HCL 0.2 MG TABLET PO ONE (08:45)
[2018-12-22] MEDS ORDERED: NITROGLYCERIN 0.4 MG/TAB 25 TAB/BOTTLE SL PRN (09:22)
[2018-12-22] MEDS ORDERED: ONDANSETRON HCL INJ/PF 4 MG/2 ML SDV IV PRN (09:22)
[2018-12-22] MEDS ORDERED: ACETAMINOPHEN 325 MG TABLET PO PRN (09:22)
[2018-12-22] MEDS ORDERED: ASPIRIN 81 MG TABLET, CHEWABLE PO ONE (09:25)
[2018-12-22] MEDS ORDERED: HYDRALAZINE HCL INJ/PF 20 MG/1 ML SDV IV PRN (09:27)
[2018-12-22] MEDS: ASPIRIN 81 MG TABLET, ENT COATED PO SCH (09:37)
[2018-12-22] MEDS: CARVEDILOL 12.5 MG TABLET PO SCH ×2 (09:38→21:16)
[2018-12-22] MEDS ORDERED: LOSARTAN POTASSIUM 50 MG TABLET PO SCH (10:00)
--- NOTE | 2018-12-22 17:15 | PDOC H&P ---
History of Present Illness Admission Date/PCP: 12/22/18 09:09 Patient complains of: chest pain History of Present Illness: ONI COLUNGA is a 73 year old female with a past medical history significant for hypertension, DM 2, rheumatoid arthritis, GERD, COPD, and obesity who presented to the emergency department today with a complaint of uncontrolled blood pressures and chest pain. Patient was seen in the emergency department yesterday for similar symptoms; work-up at that time was unremarkable and all symptoms resolved upon achieving blood pressure control and so the patient was discharged home. Unfortunately, her chest pain has reoccurred; patient confirms compliance with medication regiment and dietary guidelines. Chest pain is described as substernal, nonradiating, crushing pain rated 8/10. She denied aggravating or alleviating factors. No associated symptoms. Evaluation in the emergency department today revealed blood pressures 180/111 but otherwise stable vital signs, baseline anemia with a hemoglobin of 10.4, unremarkable chemistry and normal troponin.. Urinalysis yesterday was benign. Chest x-ray (12/21/2018) demonstrated cardiomegaly without pulmonary edema. EKG reveals sinus rhythm with nonspecific T abnormalities to the anterior/lateral leads. The patient is referred to the hospitalist service for admission and management of the above-stated complaints and findings. Past Medical History Cardiac Medical History: Reports: Hypertension Denies: Congestive Heart Failure, Myocardial Infarction Pulmonary Medical History: Reports: Chronic Obstructive Pulmonary Disease (COPD) Denies: Asthma EENT Medical History: Reports: None Neurological Medical History: Denies: Ischemic CVA, Seizures Endocrine Medical History: Reports: Diabetes Mellitus Type 2, Obesity Renal/ Medical History: Reports: None Malignancy Medical History: Reports: None GI Medical History: Reports: Gastroesophageal Reflux Disease Denies: Hepatitis, Hiatal Hernia Musculoskeltal Medical History: Reports: Arthritis - Rheumatoid Psychiatric Medical History: Reports: None Traumatic Medical History: Reports: None Hematology: Reports: Anemia Denies: Sickle Cell Disease Infectious Medical History: Reports: None Past Surgical History Past Surgical History: Reports: Cholecystectomy, Hysterectomy, Orthopedic Surgery - left hip replacement Denies: Amputation, Mastectomy, Pacemaker Social History Information Source: Patient Lives with: Spouse/Significant other Smoking Status: Former Smoker Electronic Cigarette use?: No Frequency of Alcohol Use: None Hx Recreational Drug Use: No Drugs: None Hx Prescription Drug Abuse: No - Advance Directive Resuscitation Status: Full Code Family History Family History: Reviewed & Not Pertinent Parental Family History Reviewed: Yes Children Family History Reviewed: Yes Sibling(s) Family History Reviewed.: Yes Medication/Allergy Home Medications: Aspirin [Ecotrin 81 mg EC Tablet] 81 mg PO DAILY 12/22/18 Carvedilol [Coreg 25 mg Tablet] 25 mg PO Q12 12/22/18 Clonidine HCl [Catapres 0.1 mg Tablet] 0.1 mg PO Q12 12/22/18 Cyanocobalamin (Vitamin B-12) [Vitamin B-12 1000 mcg Tablet] 1,000 mcg PO DAILY 12/22/18 Ergocalciferol (Vitamin D2) [Drisdol 50,000 unit (1.25MG) Capsule] 50,000 unit PO MO@1000 12/22/18 Folic Acid [Folvite 1 mg Tablet] 1 mg PO DAILY 12/22/18 Glimepiride [Amaryl] 2 mg PO DAILY 12/22/18 Losartan Potassium [Cozaar 100 mg Tablet] 100 mg PO DAILY 12/22/18 Potassium Chloride [Klor-Con M20] 20 meq PO DAILY 12/22/18 Triamterene/Hydrochlorothiazid [Triamterene-Hctz 37.5-25 mg Tb] 1 tab PO DAILY 12/22/18 Umeclidinium Brm/Vilanterol Tr [Anoro Ellipta 62.5-25 Mcg INH] 1 puff IH DAILY 12/22/18 Allergies/Adverse Reactions: latex Allergy (Mild, Verified 12/21/18 12:25) Shellfish * [Shellfish] Allergy (Mild, Verified 12/21/18 12:25) swell up iodine [Iodine] Allergy (Verified 12/21/18 12:25) gabapentin Adverse Reaction (Verified 12/22/18 06:49) oxycodone [From Percocet] Adverse Reaction (Verified 12/21/18 12:25) Review of Systems Constitutional: ABSENT: chills, fever(s), headache(s), weight gain, weight loss Eyes: ABSENT: visual disturbances Ears: ABSENT: hearing changes Cardiovascular: PRESENT: chest pain. ABSENT: dyspnea on exertion, edema, orthropnea, palpitations Respiratory: ABSENT: cough, hemoptysis Gastrointestinal: ABSENT: abdominal pain, constipation, diarrhea, hematemesis, hematochezia, nausea, vomiting Genitourinary: ABSENT: dysuria, hematuria Musculoskeletal: ABSENT: joint swelling Integumentary: ABSENT: rash, wounds Neurological: ABSENT: abnormal gait, abnormal speech, confusion, dizziness, focal weakness, syncope Psychiatric: ABSENT: anxiety, depression, homidical ideation, suicidal ideation Endocrine: ABSENT: cold intolerance, heat intolerance, polydipsia, polyuria Hematologic/Lymphatic: ABSENT: easy bleeding, easy bruising Physical Exam Vital Signs: Temp Pulse Resp BP Pulse Ox 97.7 F 62 20 124/70 99 12/22/18 14:59 12/22/18 14:59 12/22/18 14:59 12/22/18 14:59 12/22/18 14:59 Intake & Output 12/21/18 12/22/18 12/23/18 06:59 06:59 06:59 Weight 69.3 kg 73.2 kg General appearance: PRESENT: no acute distress, cooperative, well-developed, well-nourished Head exam: PRESENT: atraumatic, normocephalic Eye exam: PRESENT: conjunctiva pink, EOMI, PERRLA. ABSENT: scleral icterus Ear exam: PRESENT: normal external ear exam Mouth exam: PRESENT: moist, tongue midline Neck exam: ABSENT: carotid bruit, JVD, lymphadenopathy, thyromegaly Respiratory exam: PRESENT: clear to auscultation alessandra, symmetrical - Overweight, unlabored. ABSENT: rales, rhonchi, wheezes Cardiovascular exam: PRESENT: RRR, +S1, +S2. ABSENT: diastolic murmur, rubs, systolic murmur Pulses: PRESENT: normal dorsalis pedis pul Vascular exam: PRESENT: normal capillary refill GI/Abdominal exam: PRESENT: normal bowel sounds, soft. ABSENT: distended, guarding, mass, organolmegaly, rebound, tenderness Rectal exam: PRESENT: deferred Extremities exam: PRESENT: full ROM. ABSENT: calf tenderness, clubbing, pedal edema Musculoskeletal exam: PRESENT: ambulatory Neurological exam: PRESENT: alert, awake, oriented to person, oriented to place, oriented to time, oriented to situation, CN II-XII grossly intact. ABSENT: motor sensory deficit Psychiatric exam: PRESENT: appropriate affect, normal mood. ABSENT: homicidal ideation, suicidal ideation Skin exam: PRESENT: dry, intact, warm. ABSENT: cyanosis, rash Results Laboratory Results: 12/22/18 07:35 12/22/18 07:35 12/22/18 12/22/18 07:35 07:35 WBC 3.5 L RBC 3.79 Hgb 10.4 L Hct 32.6 L MCV 86 MCH 27.4 MCHC 31.9 L RDW 15.2 H Plt Count 243 Seg Neutrophils % 54.6 Sodium 141.4 Potassium 4.4 Chloride 107 Carbon Dioxide 28 Anion Gap 6 BUN 9 Creatinine 0.85 Est GFR ( Amer) > 60 Glucose 96 Calcium 10.1 12/22/18 12/22/18 12/22/18 07:35 10: 14:40 Troponin I < 0.012 < 0.012 < 0.012 Assessment and Plan - Diagnosis (1) Chest pain Qualifiers: Chest pain type: unspecified Qualified Code(s): R07.9 - Chest pain, unspecified Is this a current diagnosis for this admission?: Yes Plan: Patient is admitted with recurrent chest pain associated with hypertensive urgency. Chest x-ray and EKG are reassuring. Patient did have a negative troponin yesterday; will continue to trend troponins today. Patient is admitted to the medical floor and continuous cardiac telemetry. We will trend troponins and check A1c, lipid panel, and TSH. Daily aspirin and statin therapy. Twice daily PPI. Nitroglycerin SL tabs as needed for pain. Discussed with patient that nuclear stress testing is unavailable on the weekends. She is advised that if her conservative work-up is reassuring, she will be discharged home with local cardiology follow-up scheduled next week to discuss outpatient stress testing and further evaluation. Patient understands and is agreeable with this plan. (2) Hypertensive urgency Is this a current diagnosis for this admission?: Yes Plan: The patient reports a several weeks of difficulty controlling blood pressure. She does report recent medication adjustments; unable to identify her new or increased medication. Blood pressure 180/110 on arrival to the ED today. We will evaluate TSH with a.m. lab work. Trend troponins. Chest x-ray and EKG are reassuring. Obtain renal/aorta ultrasound. Resume home medication regiment of carvedilol 25 mg p.o. every 12 hours, losartan 100 mg daily, Maxide 25, and clonidine 0.1 mg every 12 hours. IV hydralazine as needed for blood pressure control. Cardiac diet. (3) COPD (chronic obstructive pulmonary disease) Is this a current diagnosis for this admission?: Yes Plan: Stable and without exacerbation at this time. Continue home dose Anoro. Supplemental oxygen as needed to maintain saturations between 89 and 92%. As needed nebulizer treatments. No indications for antibiotic or steroid therapy at this time. (4) GERD (gastroesophageal reflux disease) Is this a current diagnosis for this admission?: Yes Plan: Possible cause of patient's recurrent chest pain. Start twice daily PPI. Barium swallow pending. (5) Diabetes mellitus, type 2 Qualifiers: Diabetes mellitus assisted insulin use: without intermodal owner operator truck driver use Diabetes mellitus complication status: without complication Qualified Code(s): E11.9 - Type 2 diabetes mellitus without complications Is this a current diagnosis for this admission?: Yes Plan: Patient's oral medications were held while admitted. Accu-Cheks before meals and at bedtime with sliding scale insulin. Check A1c with a.m. lab work. Consistent carb/cardiac diet. - Time Time Spent with patient: 35 or more minutes Medications reviewed and adjusted accordingly: Yes Anticipated discharge: Home Within: within 24 hours
[2018-12-22] MEDS: CLONIDINE HCL 0.1 MG TABLET PO SCH (21:16)
--- NOTE | 2018-12-22 21:23 | EKG REPORT ---
SEVERITY:- ABNORMAL ECG - SINUS RHYTHM NONSPECIFIC T ABNORMALITIES, ANT-LAT LEADS : Confirmed by: Chapito Jain MD 22-Dec-2018 21:22:52
[2018-12-22] MEDS ORDERED: ATORVASTATIN CALCIUM 40 MG TABLET PO SCH (22:00)
[2018-12-23 05:59] LABS: HEMATOCRIT 30.1 % (36.0-47.0); HEMOGLOBIN 9.7 g/dL (12.0-15.5); MEAN CORPUSCULAR HEMOGLOBIN 27.4 pg (27.0-33.4); MEAN CORPUSCULAR HGB CONC 32.3 g/dL (32.0-36.0); MEAN CORPUSCULAR VOLUME 85 fl (80-97); PLATELET COUNT 228 10^3/uL (150-450); RED BLOOD COUNT 3.55 10^6/uL (3.72-5.28); RED CELL DISTRIBUTION WIDTH 15.1 % (11.5-14.0); WHITE BLOOD COUNT 4.3 10^3/uL (4.0-10.5)
[2018-12-23 06:12] LABS: ANION GAP 9 (5-19); BLOOD UREA NITROGEN 11 mg/dL (7-20); CALCIUM 9.4 mg/dL (8.4-10.2); CARBON DIOXIDE 26 mmol/L (22-30); CHLORIDE 106 mmol/L (98-107); CHOLESTEROL 158.54 mg/dL (0-200); GLUCOSE 110 mg/dL (75-110); TRIGLYCERIDES 46 mg/dL (<150)
[2018-12-23 06:22] LABS: DIRECT LDL 101 mg/dL (<100)
[2018-12-23] MEDS: PANTOPRAZOLE SODIUM 40 MG TABLET.DR PO SCH ×2 (06:45→17:03)
[2018-12-23] MEDS ORDERED: TRIAMTERENE/HYDROCHLOROTHIAZIDE 37.5-25 MG TABLET PO SCH (10:00)
[2018-12-23] MEDS ORDERED: (PENDING PHARMACY ID) (Umeclidinium Brm/Vilanterol Tr [Anoro Ellipta 62.5-25 Mcg Inh] 1 PU IH SCH (10:00)
[2018-12-23] MEDS ORDERED: LOSARTAN POTASSIUM 50 MG TABLET PO SCH (10:00)
[2018-12-23] MEDS: CLONIDINE HCL 0.1 MG TABLET PO SCH (10:03)
[2018-12-23] MEDS: ASPIRIN 81 MG TABLET, ENT COATED PO SCH (10:04)
[2018-12-23] MEDS: CARVEDILOL 12.5 MG TABLET PO SCH (10:05)
[2018-12-23] MEDS ORDERED: CLONIDINE HCL 0.1 MG TABLET PO SCH (14:00)
[2018-12-23 16:35] VITALS: BP 161/75
--- NOTE | 2018-12-23 18:51 | PDOC DISCHARGE SUMMARY ---
Impression - Admit/DC Date/PCP Admission Date/Primary Care Provider: 12/22/18 09:09 Discharge Date: 12/23/18 - Discharge Diagnosis (1) Chest pain Is this a current diagnosis for this admission?: Yes (2) Hypertensive urgency Is this a current diagnosis for this admission?: Yes (3) COPD (chronic obstructive pulmonary disease) Is this a current diagnosis for this admission?: Yes (4) GERD (gastroesophageal reflux disease) Is this a current diagnosis for this admission?: Yes (5) Diabetes mellitus, type 2 Is this a current diagnosis for this admission?: Yes - Additional Information Resuscitation Status: Full Code Discharge Diet: Cardiac Discharge Activity: Activity As Tolerated, Balance Activity w/Rest Referrals: ISRAEL EM MD [COMMUNITY BASED STAFF] - Prescriptions: Clonidine HCl [Catapres 0.1 mg Tablet] 0.1 mg PO Q8 #90 tablet Pantoprazole Sodium [Protonix [address] Tablet] 40 mg PO DAILY #30 tablet.dr Home Medications: Aspirin [Ecotrin 81 mg EC Tablet] 81 mg PO DAILY 12/22/18 Carvedilol [Coreg 25 mg Tablet] 25 mg PO Q12 12/22/18 Cyanocobalamin (Vitamin B-12) [Vitamin B-12 1000 mcg Tablet] 1,000 mcg PO DAILY 12/22/18 Ergocalciferol (Vitamin D2) [Drisdol 50,000 unit (1.25MG) Capsule] 50,000 unit PO MO@1000 12/22/18 Folic Acid [Folvite 1 mg Tablet] 1 mg PO DAILY 12/22/18 Glimepiride [Amaryl] 2 mg PO DAILY 12/22/18 Losartan Potassium [Cozaar 100 mg Tablet] 100 mg PO DAILY 12/22/18 Potassium Chloride [Klor-Con M20] 20 meq PO DAILY 12/22/18 Triamterene/Hydrochlorothiazid [Triamterene-Hctz 37.5-25 mg Tb] 1 tab PO DAILY 12/22/18 Umeclidinium Brm/Vilanterol Tr [Anoro Ellipta 62.5-25 Mcg INH] 1 puff IH DAILY 12/22/18 Acetaminophen [Tylenol 325 mg Tablet] 650 mg PO Q4HP PRN tablet 12/23/18 Clonidine HCl [Catapres 0.1 mg Tablet] 0.1 mg PO Q8 #90 tablet 12/23/18 Pantoprazole Sodium [Protonix [address] Tablet] 40 mg PO DAILY #30 tablet. 12/23/18 History of Present Illiness History of Present Illness: ONI COLUNGA is a 73 year old female with a past medical history significant for hypertension, DM 2, rheumatoid arthritis, GERD, COPD, and obesity who presented to the emergency department today with a complaint of uncontrolled blood pressures and chest pain. Patient was seen in the emergency department yesterday for similar symptoms; work-up at that time was unremarkable and all symptoms resolved upon achieving blood pressure control and so the patient was discharged home. Unfortunately, her chest pain has reoccurred; patient confirms compliance with medication regiment and dietary guidelines. Chest pain is described as substernal, nonradiating, crushing pain rated 8/10. She denied aggravating or alleviating factors. No associated symptoms. Evaluation in the emergency department today revealed blood pressures 180/111 but otherwise stable vital signs, baseline anemia with a hemoglobin of 10.4, unremarkable chemistry and normal troponin.. Urinalysis yesterday was benign. Chest x-ray (12/21/2018) demonstrated cardiomegaly without pulmonary edema. EKG reveals sinus rhythm with nonspecific T abnormalities to the anterior/lateral leads. The patient is referred to the hospitalist service for admission and management of the above-stated complaints and findings. Hospital Course Hospital Course: The patient was admitted to the medical floor on continuous cardiac telemetry. She remained in sinus rhythm throughout her admission and had no further episodes of chest discomfort. Serial troponins were negative x4. A1c is 5.6%. Lipid panel revealed HDL 37, LDL 101, triglycerides 46, total cholesterol 158. TSH is normal. CBC and chemistry are unremarkable other than baseline anemia (hemoglobin of 9.7 at time of discharge). Nuclear stress testing is not available on the weekend; discussed with patient that she is stable for discharge to home with outpatient follow-up with cardiology services to arrange for further evaluation of her chest discomfort. She may also benefit from cardiology and/or hypertensive specialty referral for additional assistance in managing her hypertension. The patient underwent an renal aorta ultrasound; no evidence of renal artery stenosis. Would also recommend consideration of barium swallow study to evaluate for non- cardiac causes of her chest discomfort. The patient was admitted with hypertensive urgency; blood pressures 180/110. This could certainly be the source of her chest discomfort. Fortunately blood pressure control was obtained through resuming her home medication regiment and increasing her clonidine 0.1 mg p.o. tablet to 3 times daily. She is discharged with blood pressures of 161/75; will require additional medication titration/management as an outpatient. The patient is discharged home in stable condition. She is instructed to follow-up with her primary care provider within 1 week. She is advised to take her medications as prescribed and to eat a low-sodium diet. She is encouraged to return to the emergency department as needed for concerning symptoms. Physical Exam Vital Signs: Temp Pulse Resp BP Pulse Ox 98 F 60 18 161/75 H 98 12/23/18 18:08 12/23/18 18:08 12/23/18 18:08 12/23/18 18:08 12/23/18 18:08 Intake & Output 12/22/18 12/23/18 12/24/18 06:59 06:59 06:59 Intake Total 240 Balance 240 Weight 69.3 kg 73.5 kg General appearance: PRESENT: no acute distress, cooperative, well-developed, well-nourished - Overweight Head exam: PRESENT: atraumatic, normocephalic Eye exam: PRESENT: conjunctiva pink, EOMI, PERRLA. ABSENT: scleral icterus Ear exam: PRESENT: normal external ear exam Mouth exam: PRESENT: moist, tongue midline Neck exam: ABSENT: carotid bruit, JVD, lymphadenopathy, thyromegaly Respiratory exam: PRESENT: clear to auscultation alessandra, symmetrical, unlabored. ABSENT: rales, rhonchi, wheezes Cardiovascular exam: PRESENT: RRR, +S1, +S2. ABSENT: diastolic murmur, rubs, systolic murmur Pulses: PRESENT: normal dorsalis pedis pul Vascular exam: PRESENT: normal capillary refill GI/Abdominal exam: PRESENT: normal bowel sounds, soft. ABSENT: distended, guarding, mass, organolmegaly, rebound, tenderness Rectal exam: PRESENT: deferred Extremities exam: PRESENT: full ROM. ABSENT: calf tenderness, clubbing, pedal edema Musculoskeletal exam: PRESENT: ambulatory Neurological exam: PRESENT: alert, awake, oriented to person, oriented to place, oriented to time, oriented to situation, CN II-XII grossly intact. ABSENT: motor sensory deficit Psychiatric exam: PRESENT: appropriate affect, normal mood. ABSENT: homicidal ideation, suicidal ideation Skin exam: PRESENT: dry, intact, warm. ABSENT: cyanosis, rash Results Laboratory Results: WBC 4.3 10^3/uL (4.0-10.5) 12/23/18 05:41 RBC 3.55 10^6/uL (3.72-5.28) L 12/23/18 05:41 Hgb 9.7 g/dL (12.0-15.5) L 12/23/18 05:41 Hct 30.1 % (36.0-47.0) L 12/23/18 05:41 MCV 85 fl (80-97) 12/23/18 05:41 MCH 27.4 pg (27.0-33.4) 12/23/18 05:41 MCHC 32.3 g/dL (32.0-36.0) 12/23/18 05:41 RDW 15.1 % (11.5-14.0) H 12/23/18 05:41 Plt Count 228 10^3/uL (150-450) 12/23/18 05:41 Lymph % (Auto) 31.2 % (13-45) 12/22/18 07:35 [place] % (Auto) 10.9 % (3-13) 12/22/18 07:35 Eos % (Auto) 2.3 % (0-6) 12/22/18 07:35 Baso % (Auto) 1.0 % (0-2) 12/22/18 07:35 Absolute Neuts (auto) 1.9 10^3/uL (1.7-8.2) 12/22/18 07:35 Absolute Lymphs (auto) 1.1 10^3/uL (0.5-4.7) 12/22/18 07:35 Absolute Monos (auto) 0.4 10^3/uL (0.1-1.4) 12/22/18 07:35 Absolute Eos (auto) 0.1 10^3/uL (0.0-0.6) 12/22/18 07:35 Absolute Basos (auto) 0.0 10^3/uL (0.0-0.2) 12/22/18 07:35 Seg Neutrophils % 54.6 % (42-78) 12/22/18 07:35 Sodium 140.6 mmol/L (137-145) 12/23/18 05:41 Potassium 4.0 mmol/L (3.6-5.0) 12/23/18 05:41 Chloride 106 mmol/L (98-107) 12/23/18 05:41 Carbon Dioxide 26 mmol/L (22-30) 12/23/18 05:41 Anion Gap 9 (5-19) 12/23/18 05:41 BUN 11 mg/dL (7-20) 12/23/18 05:41 Creatinine 0.88 mg/dL (0.52-1.25) 12/23/18 05:41 Est GFR ( Amer) > 60 (>60) 12/23/18 05:41 Est GFR (MDRD) Non-Af > 60 (>60) 12/23/18 05:41 Glucose 110 mg/dL (75-110) 12/23/18 05:41 Hemoglobin A1c % 5.6 % (4.7-6.0) 12/23/18 05:41 Calcium 9.4 mg/dL (8.4-10.2) 12/23/18 05:41 Troponin I < 0.012 ng/mL 12/22/18 21:13 Triglycerides 46 mg/dL (<150) 12/23/18 05:41 Cholesterol 158.54 mg/dL (0-200) 12/23/18 05:41 LDL Cholesterol Direct 101 mg/dL (<100) H 12/23/18 05:41 VLDL Cholesterol 9.0 mg/dL (10-31) L 12/23/18 05:41 HDL Cholesterol 37 mg/dL (>40) L 12/23/18 05:41 TSH 2.87 uIU/mL (0.47-4.68) 12/23/18 05:41 12/22/18 12/22/18 12/22/18 07:35 10:07 14:40 Troponin I < 0.012 < 0.012 < 0.012 12/22/18 21:13 Troponin I < 0.012 Plan Plan of Treatment: The patient is discharged to home in stable condition. She is instructed to follow up with her primary care provider within 1 week. Recommend outpatient stress testing to further evaluate chest pain. The patient may also benefit from having a barium swallow study to evaluate for noncardiac causes of her discomfort. She is instructed to take her medications as prescribed. Eat a low sodium diet. She is advised to return to the emergency department as needed for concerning symptoms. Time Spent: Greater than 30 Minutes Stroke Is this a Stroke Patient?: No Acute Heart Failure - Is this a Heart Failure Patient?: No
--- NOTE | 2018-12-24 09:03 | RADIOLOGY REPORT (SQ) ---
EXAM DESCRIPTION: U/S LTD DUPLEX ART/SAMREEN FLOW COMPLETED DATE/TIME: 12/23/2018 6:05 pm REASON FOR STUDY: Hypertension COMPARISON: None. TECHNIQUE: Realtime and static grayscale images acquired. Selected color Doppler, velocities and spe ctral images recorded. LIMITATIONS: None. FINDINGS: RIGHT KIDNEY: RENAL ARTERY VELOCITIES: 119 cm/sec. Segmental artery velocity 43 cm/sec. RENAL VEIN: Color doppler flow present, patent. VELOCITY RATIO: 0.8. Normal waveforms. KIDNEY: Normal size. No significant pathology. LEFT KIDNEY: RENAL ARTERY VELOCITIES: 70 cm/sec. Segmental artery velocity 49 cm/sec. RENAL VEIN: Color doppler flow present, patent. VELOCITY RATIO: 0.9. Normal waveforms. KIDNEY: Normal size. No significant pathology. BLADDER: Obscured by bowel gas. OTHER: No other significant finding. IMPRESSION: NO DOPPLER EVIDENCE OF HEMODYNAMICALLY SIGNIFICANT RENAL ARTERY STENOSIS. COMMENT: NORMAL RENAL ARTERY/AORTA VELOCITY RATIO IS LESS THAN OR EQUAL TO 3.5. TECHNICAL DOCUMENTATION: JOB ID: [id number] [employer]- All Rights Reserved Reading location - IP/workstation name: [email or web address]
== END 2018-12-23 18:54 | disposition home or self-care (01) ==
LOC: ER 06:38 → INTOOBSV 09:09 → EH 09:09 → 4S 12:14
PROVIDERS: ADMIT Internal Medicine; ATTEND Internal Medicine
DX: I16.0 Hypertensive urgency (principal); R07.9 Chest pain, unspecified; J44.9 Chronic obstructive pulmonary disease, unspecified; K21.9 Gastro-esophageal reflux disease without esophagitis; E11.9 Type 2 diabetes mellitus without complications; M06.9 Rheumatoid arthritis, unspecified; E66.9 Obesity, unspecified; I51.7 Cardiomegaly; I10 Essential (primary) hypertension; D64.9 Anemia, unspecified; Z79.82 Long term (current) use of aspirin; Z79.84 Long term (current) use of oral hypoglycemic drugs; Z96.642 Presence of left artificial hip joint; Z87.891 Personal history of nicotine dependence; Z88.6 Allergy status to analgesic agent; Z91.041 Radiographic dye allergy status; Z91.040 Latex allergy status; Z91.013 Allergy to seafood
CPT/HCPCS: 93005; 99284; 36415 ×2; 84443; 85025; 85027; 80048 ×2; 84484; 83036; 80061; 93976; 93010; G0378 ×3; A9270 ×11; J0360; J3490 ×3

== ENCOUNTER 2019-01-15 08:15 | Day surgery (SDC) | payer MEDICARE, OTHER ==
[~2019-01-15 08:15] MED LIST: PROPOFOL INJ 200 MG/20 ML VIAL IV ONE
[2019-01-15] MEDS ORDERED: PROPOFOL INJ 200 MG/20 ML VIAL IV ONE ×2 (10:07→10:20)
[2019-01-15 10:54] VITALS: BP 115/61
--- NOTE | 2019-01-15 12:40 | Operative Report ---
Operative Report DATE OF SURGERY: 01/15/19 Operative Report: The risks, benefits and alternatives of the procedure including the risk of bleeding, perforation requiring surgery have been explained to the patient in detail and informed consent has been obtained. The patient is taken back to the endoscopy suite and placed in the left, lateral decubital position. Timeout was called. Propofol medication is administered. Rectal examination is done which did not reveal any masses, tears or fissures. An Olympus videoscope was introduced into the patient's rectum. Scope was then carefully advanced all the way to the cecum. The cecum was identified by the usual anatomical landmarks including the ileocecal valve as well as the appendiceal office. Photodocumentation is obtained. Scope was then sequentially pulled back via the various segments of the colon including the ascending colon, hepatic flexure, transverse colon, splenic flexure, descending colon and finally into the rectosigmoid portions of the colon. Retroflexion maneuvers performed. PREOPERATIVE DIAGNOSIS: Personal history of polyp POSTOPERATIVE DIAGNOSIS: Colon polyp x1 removed via biopsy forceps. Internal hemorrhoids OPERATION: Colonoscopy with biopsy SURGEON: EULOGIO RADFORD ANESTHESIA: LMAC TISSUE REMOVED OR ALTERED: As noted above. COMPLICATIONS: None. ESTIMATED BLOOD LOSS: None. INTRAOPERATIVE FINDINGS: As noted above. Of note the patient has a very difficult sigmoid curve. Due to difficulty of examination of area there may be a polyp she will need a surveillance in the next year PROCEDURE: Patient tolerated the procedure well. No immediate postprocedure complications are noted. Patient is discharged in good condition. Discharge date 01/15/19 Discharge diet: Regular. Discharge activity: Regular. Patient is instructed to call the office or proceed to the emergency room should there be any further questions. Wait on the pathology. I would recommend 1 year surveillance due to the difficulty of evaluation of the sigmoid area.
== END 2019-01-15 11:07 | disposition home or self-care (01) ==
LOC: END 08:15
PROVIDERS: ATTEND Internal Medicine Gastroenterology
DX: Z86.010 Personal history of colon polyps (principal); D12.6 Benign neoplasm of colon, unspecified; K64.8 Other hemorrhoids; E11.9 Type 2 diabetes mellitus without complications
CPT/HCPCS: 45380; 82962; 88305 ×2; 00811; J2704; 811

== ENCOUNTER → 2019-05-28 | Outpatient (CLI) | payer MEDICARE, OTHER ==
[2019-05-28 16:25] LABS: ANION GAP 11 (5-19); BLOOD UREA NITROGEN 13 mg/dL (7-20); CALCIUM 9.5 mg/dL (8.4-10.2); CARBON DIOXIDE 26 mmol/L (22-30); CHLORIDE 104 mmol/L (98-107); GLUCOSE 161 mg/dL (75-110)
== END ==
LOC: OD 15:15
PROVIDERS: ATTEND Family Medicine
DX: N28.9 Disorder of kidney and ureter, unspecified (principal)
CPT/HCPCS: 36415; 80048

== ENCOUNTER → 2020-02-11 | Outpatient (CLI) | payer MEDICARE, OTHER ==
[2020-02-11 09:03] LABS: ALBUMIN 3.2 g/dL (3.5-5.0); ALKALINE PHOSPHATASE 101 U/L (38-126); ANION GAP 9 (5-19); ASPARTATE AMINO TRANSFERASE 19 U/L (14-36); BILIRUBIN,DIRECT 0.2 mg/dL (0.0-0.4); BILIRUBIN,TOTAL 0.3 mg/dL (0.2-1.3); BLOOD UREA NITROGEN 16 mg/dL (7-20); CALCIUM 9.1 mg/dL (8.4-10.2); CARBON DIOXIDE 23 mmol/L (22-30); CHLORIDE 107 mmol/L (98-107); CHOLESTEROL 172.69 mg/dL (0-200); GLUCOSE 97 mg/dL (75-110); POTASSIUM 3.9 mmol/L (3.6-5.0); TRIGLYCERIDES 67 mg/dL (<150)
[2020-02-11 09:13] LABS: DIRECT LDL 96 mg/dL (<100)
== END ==
LOC: OD 07:42
PROVIDERS: ATTEND Family Medicine
DX: E11.22 Type 2 diabetes mellitus with diabetic chronic kidney disease (principal); N18.2 Chronic kidney disease, stage 2 (mild)
CPT/HCPCS: 36415; 80053; 80061; 82043; 82570; 83036

== ENCOUNTER → 2020-04-09 | Outpatient (CLI) | payer MEDICARE, OTHER ==
[2020-04-09 14:21] LABS: C-REACTIVE PROTEIN 50.8 mg/L (<10.0)
[2020-04-10 11:37] LABS: HEPATITIS C VIRUS AB 0.1 s/co ratio (0.0-0.9)
== END ==
LOC: OD 13:07
PROVIDERS: ATTEND Family Medicine
DX: R63.4 Abnormal weight loss (principal)
CPT/HCPCS: 36415; 84443; 86140; 86701; 86803; 86804